=== PATIENT | female | born 1995 | race African-American/Black ===

== ENCOUNTER → 2021-02-18 11:23 | Outpatient (BNVA) | payer MEDICAID, SELFPAY | PROVIDERS: Visit Provider Advanced Practice Midwife | DX: O21.1 Hyperemesis gravidarum with metabolic disturbance (principal); Z32.01 Encounter for pregnancy test, result positive; Z3A.00 Weeks of gestation of pregnancy not specified | CPT/HCPCS: 81003; 81025; 99202 ==